=== PATIENT | male | born 1945 | race Caucasian/White ===

== ENCOUNTER → 2016-08-18 | Outpatient (CLI) | payer OTHER ==
[~2016-08-18] MED LIST: LISI-461 PO
[2016-08-18 12:52] LABS: BLOOD UREA NITROGEN 19 mg/dl (7-18); BUN/CREATININE RATIO 14.3 (10-20); CALCIUM 8.6 mg/dl (8.5-10.1); CARBON DIOXIDE 28 mmol/L (21-32); CHLORIDE 110 mmol/L (98-107); GLUCOSE 99 mg/dl (70-99); POTASSIUM 4.1 mmol/L (3.5-5.1); SODIUM 143 mmol/L (136-145)
== END | disposition home or self-care (01) ==
LOC: C.LAB1850 11:28
PROVIDERS: ATTEND Internal Medicine
DX: I10 Essential (primary) hypertension (principal)

== ENCOUNTER → 2017-01-29 | Outpatient (CLI) | payer OTHER | END | disposition home or self-care (01) | LOC: C.LABSPEC 12:24 | PROVIDERS: ATTEND Internal Medicine | DX: Z12.11 Encounter for screening for malignant neoplasm of colon (principal) ==

== ENCOUNTER → 2017-02-22 | Outpatient (CLI) | payer OTHER ==
--- NOTE | 2017-02-22 11:51 | DIAGNOSTIC IMAGING REPORT ---
R HIP UNILATERAL 2 VIEWS, L HIP UNILATERAL 2 VIEWS HISTORY: 71 years-old Male M54.5 Low back [id number] acute bilateral hip pain COMPARISON: None available TECHNIQUE: 2 views of the bilateral hips right total of 4 images FINDINGS: RIGHT: Moderate right hip osteoarthritis. No acute fracture or dislocation. Vascular calcifications also noted. Imaged right hemipelvis appears intact. LEFT: Moderate left hip osteoarthritis. No acute fracture or dislocation. Imaged left hemipelvis also appears intact. IMPRESSION: 1. Moderate bilateral hip osteoarthritis without acute fracture or dislocation. 2. Peripheral vascular disease. The above report was generated using voice recognition software. It may contain grammatical, syntax or spelling errors. Electronically signed by: Erik Villalba M.D. 02/22/2017 11:49 AM Dictated Date/Time: 02/22/2017 11:48 AM
--- NOTE | 2017-02-22 11:51 | DIAGNOSTIC IMAGING REPORT ---
R HIP UNILATERAL 2 VIEWS, L HIP UNILATERAL 2 VIEWS HISTORY: 71 years-old Male M54.5 Low back [id number] acute bilateral hip pain COMPARISON: None available TECHNIQUE: 2 views of the bilateral hips right total of 4 images FINDINGS: RIGHT: Moderate right hip osteoarthritis. No acute fracture or dislocation. Vascular calcifications also noted. Imaged right hemipelvis appears intact. LEFT: Moderate left hip osteoarthritis. No acute fracture or dislocation. Imaged left hemipelvis also appears intact. IMPRESSION: 1. Moderate bilateral hip osteoarthritis without acute fracture or dislocation. 2. Peripheral vascular disease. The above report was generated using voice recognition software. It may contain grammatical, syntax or spelling errors. Electronically signed by: Erik Villalba M.D. 02/22/2017 11:49 AM Dictated Date/Time: 02/22/2017 11:48 AM
== END | disposition home or self-care (01) ==
LOC: C.RAD1850 11:26
PROVIDERS: ATTEND Internal Medicine
DX: M54.5 Low back pain (principal); M16.0 Bilateral primary osteoarthritis of hip; I73.9 Peripheral vascular disease, unspecified

== ENCOUNTER → 2017-07-14 | Outpatient (CLI) | payer OTHER ==
--- NOTE | 2017-07-14 14:22 | DIAGNOSTIC IMAGING REPORT ---
TWO VIEW CHEST CLINICAL HISTORY: Hypoxia. Cough. FINDINGS: PA and lateral chest radiographs are compared to study dated 02/13/2013. The heart is top normal for projection and there is mild atherosclerotic calcification of the thoracic aorta. The lungs and pleural spaces are clear. Chronic interstitial thickening similar to previous. Bibasilar airspace opacities likely represent atelectasis. No pleural effusion or pneumothorax is seen. The skeletal structures are osteopenic. The bony thorax appears intact. IMPRESSION: Bibasilar airspace opacities likely represent atelectasis. Correlate clinically for evidence of a superimposed infectious/inflammatory pneumonitis. Electronically signed by: Alan Estevez M.D. 07/14/2017 2:21 PM Dictated Date/Time: 07/14/2017 2:20 PM
== END | disposition home or self-care (01) ==
LOC: C.RAD1850 13:59
PROVIDERS: ATTEND Internal Medicine
DX: R09.02 Hypoxemia (principal); R05 Cough; R09.89 Other specified symptoms and signs involving the circulatory and respiratory systems